=== PATIENT | male | born 1955 | race Caucasian/White ===

== ENCOUNTER 2016-11-24 16:50 | Emergency (ER) | payer MEDICAID ==
[~2016-11-24] VITALS: Ht 180.3 cm; Wt 68.0 kg
[~2016-11-24 16:50] MED LIST: CIPR-173 PO; FLUT50SP13; LACT10SO3 PO; LORA-352 PO; NOR10T PO; RANI150I PO
[2016-11-24 17:05] VITALS: BP 161/90
== END 2016-11-24 18:14 | disposition home or self-care (01) ==
LOC: ER 16:53
DX: G89.29 Other chronic pain (principal); M54.5 Low back pain; M19.90 Unspecified osteoarthritis, unspecified site; K21.9 Gastro-esophageal reflux disease without esophagitis

== ENCOUNTER 2017-10-29 12:39 | Emergency (ER) | payer MEDICAID ==
[~2017-10-29] VITALS: Ht 172.7 cm; Wt 70.3 kg
[2017-10-29 13:18] VITALS: BP 141/70
[2017-10-29] MEDS ORDERED: HYDROcodone-ACET 5/325MG TAB PO ONE (14:15)
== END 2017-10-29 14:28 | disposition home or self-care (01) ==
LOC: ER 12:46
DX: K21.9 Gastro-esophageal reflux disease without esophagitis (principal); M19.90 Unspecified osteoarthritis, unspecified site; Z76.0 Encounter for issue of repeat prescription

== ENCOUNTER 2018-05-23 01:18 | Emergency (ER) | payer MEDICAID ==
[~2018-05-23] VITALS: Ht 180.3 cm; Wt 68.0 kg
[2018-05-23 01:33] VITALS: BP 164/85
[2018-05-23] MEDS ORDERED: ACETAMINOPHEN 325 MG TAB PO ONE (01:45)
[2018-05-23] MEDS ORDERED: cefTRIAXone W LIDOCAINE 1 GM IM IM ONE (02:45)
[2018-05-23] MEDS ORDERED: cefTRIAXone SOD 1,000 MG VL IM ONE (02:45)
[2018-05-23] MEDS ORDERED: methylPREDNISolone SOD SUCC 125 MG/2 ML VL IM ONE (02:45)
== END 2018-05-23 03:17 | disposition home or self-care (01) ==
LOC: ER 01:21
DX: H66.93 Otitis media, unspecified, bilateral (principal); M19.90 Unspecified osteoarthritis, unspecified site; K21.9 Gastro-esophageal reflux disease without esophagitis; Z79.899 Other long term (current) drug therapy
CPT/HCPCS: 71045; J0696

== ENCOUNTER 2018-10-01 00:05 | Emergency (ER) | payer OTHER, MEDICAID ==
[~2018-10-01] VITALS: Ht 180.3 cm; Wt 74.8 kg
[2018-10-01 00:46] VITALS: BP 135/87
== END 2018-10-01 02:48 | disposition home or self-care (01) ==
LOC: ER 00:09
DX: K04.7 Periapical abscess without sinus (principal); K02.9 Dental caries, unspecified; K21.9 Gastro-esophageal reflux disease without esophagitis; M19.90 Unspecified osteoarthritis, unspecified site